=== PATIENT | female | born 2000 | race African-American/Black ===

== ENCOUNTER 2024-05-10 09:45 | Emergency (ER) | payer OTHER, SELFPAY ==
[2024-05-10 10:03] VITALS: BP 106/61; PULSE 83; RESP 18; TEMP 36.6; O2SAT 98; BMI 27.8
--- NOTE | 2024-05-10 11:29 | ED.GENADULT ---
HPI - General Adult General Chief complaint: General Medical Stated complaint: rash on both hands Time Seen by Provider: 05/10/24 11:24 Source: patient Mode of arrival: ambulatory Limitations: no limitations History of Present Illness ED Provider: SHASTA ARELLANO PA-C HPI narrative: 24 year old female presents to the ED today for evaluation of hand rash x2-3 days. Describes the rash as small red dots to her palms. No drainage. Admits to itching sensation on the bottom of her feet. Denies any oral lesions. Denies recent abx. No medication changes. No new soaps/ lotions/ detergents. No known tick or insect bites. She does not have any children at home. She does not work in healthcare. She is currently in school ([employer]) and states that many individuals there have children and have been ill recently. Denies headache, fever, chills, vision changes, neck pain, sore throat, cough. Related Data Allergies Allergy/AdvReac Type Severity Reaction Status Date / Time apricot Allergy Hives Verified 05/10/24 10:06 souza [cherries] Allergy Hives Verified 05/10/24 10:06 peach Allergy Hives Verified 05/10/24 10:06 plum Allergy Hives Verified 05/10/24 10:06 Review of Systems Review of Systems: Yes all other systems are reviewed and are negative PMFSH Past Medical History Attestation statement: The following information was validated with the patient. Source: old records reviewed and nursing notes reviewed Physical Exam ED Vital Signs: Vital Signs - 24 hr 05/10/24 10:03 Temperature 98 F Pulse Rate 83 Respiratory Rate 18 Blood Pressure 106/61 Pulse Oximetry 98 Oxygen Delivery Method Room Air BMI result Body Mass Index 27.8 vital signs stable General: Well appearing, in no acute distress. Skin: +multiple small red spots to b/l palms, slightly visible to plantar aspects of b/l feet. spares webbed spaces. no obvious lesions to mucous membranes. no sloughing. no target lesions. nondermatomal pattern. no drainage. Head: Normocephalic, atraumatic. EENT: Hearing is intact b/l. Conjunctiva clear. PERRLA. EOM intact. Moist mucous membranes.? Cardiac: Chest wall symmetric Lungs: Normal respiratory effort without accessory muscle use Neuro: AOx3. Normal speech. Ambulating with steady gait. Medical Decision Making Medical Decision Making [facility] Narrative: This is a 24 patient who presents with palmar rash consistent with HFM disease. Vitals are stable. she is nontoxic appearing. on exam there are multiple small red spots to b/l palms, slightly visible to plantar aspects of b/l feet. spares webbed spaces. no obvious lesions to mucous membranes. no sloughing. no target lesions. nondermatomal pattern. no drainage. Differential diagnosis includes HFM, contact/atopic/eczematous dermatitis, psoriasis. History and exam findings not consistent with lyme/tick bourne illness, herpes zoster/simplex, scabies,? dangerous etiologies of rash such as SJS/TEN, or secondary dangerous causes such as petechial rashes from thrombocytopenia or rickettsial infections.? Plan at this time is to treat symptomatically, instruct to follow up with PCP or derm PRN. Differential Diagnosis Differential Diagnoses: The differential diagnosis associated with the presentation includes as above. Admission/Observation not indicated. Social Determinants Patient?s care significantly limited by Social Determinants of Health including: Other Social Determinant of Health Critical Care Time Critical Care Time Critical Care Time: No Discharge Plan Discharge Clinical Impression: Hand, foot and mouth disease Patient Disposition: Home, Self-Care Instructions: Hand, Foot, and Mouth Disease (ED) Additional Instructions: Your rash is consisted with HFM disease (see home instructions). This is highly contagious, spread through bodily fluids. It is self limiting and does not require treatment with medications. You may take benadryl for itching. Return with new or worsening symptoms. In the case of an emergency call 911. Referrals: Physician,Unknown J [Primary Care Provider] - Stand Alone Forms: Work/School Release Discharge Date/Time: 05/10/24 11:34 Print Language: Divehi
[2024-05-10 11:33] VITALS: BP 106/61; PULSE 83; RESP 18; TEMP 36.6; O2SAT 98
--- OUTSIDE RECORDS SUMMARY | 2024-05-10 13:10 | XMS_ITS | Encounter Summary ---
Author Organization [facility] Address [address] [place] [address] Care Team Providers Care Buyer Renter Name Role Phone Nevaeh Huffman Primary Care Provider [phone] Encounter Details Date Type Department Care Team (Late st Contact Info) Description 04/09/2024 myChart Message [facility] [address] [place] [address] [id number] Electronic Component Processor: Lalo Ko MD PhD [address] [place] [phone] Adding vitamins to my regiment Social History Tobacco Use Types Packs/Day Years Used Date Smoking Tobacco: Never Smokeless Tobacco: Never Comments:: Alcohol Use Standard Drinks/Week Comments No 0 (1 standard drink = 0.6 oz pur e alcohol) Comments No Sex and Gender Information Value Date Recorded Sex Assigned at Female 07/13/2019 8:00 AM EDT Legal Sex Female 12:48 AM EDT Gender Identity Female 07/13/2019 8:00 AM EDT Sexual Orientation Straight 07/13/2019 8: 00 AM EDT documented as of this encounter Plan of Treatment Upcoming Encounters Date Type Department Care Team (Late st Contact Info) Description 07/05/2024 4:00 PM EDT Telehealth [facility] [address] [place] [address] [phone] Electronic Component Processor: Lalo Ko MD PhD [address] [place] [address] documented as of this encounter Visit Diagnoses Not on filedocumented in this encounter Care Teams Buyer Renter Relationship Specialty Start Date End Date Nevaeh Huffman PA [address] [place] [phone] PCP - General Physician Financial Counselor 10/25/19 documented as of this encounter
--- OUTSIDE RECORDS SUMMARY | 2024-05-10 13:10 | XMS_ITS | Clinical Summary ---
Author Organization [facility] Address [address] [place] [address] Care Team Providers Care Inspector And Tester Name Role Phone Nevaeh Huffman Primary Care Provider [phone] Allergies Active Allergy Reactions Criticality Noted Date Comments Apple Angioedema High Cat Dander Itching Smith Angioedema High 08/08/2021 Parmer Hives Blotches [place] Angioedema High 05/30/2017 Medications * This document contains information received from the source organization and may not represent a complete record from that organization. OCRELIZUMAB (OCREVUS INTRAVENOU) Infuse intravenous ly. Active modafiniL (PROVIGIL) 200 mg tablet TAKE 1 TABLET BY MOUTH TWICE A DAY 60 tablet 5 02/27/2024 Active Active Problems Patient Care Coordination No te Formatting of this note migh t be different from the original. PT-1 # [id number] [facility] [address] [facility] Duration of services 6 Months Frequency of services 1 visit per Month Member will require a wheelchair van No Member will be accompanied by an escort No Member will require a service animal No EXP: 12/20/20 Problem Noted Date Diagnosed Date Myopia of both eyes with astigmatism 12/19/2021 Assessment & Plan (12/19/2021 9:11 AM EDT): Significant change in Rx OU. New Eyeglasses to be ordered. Anxiety 12/19/2021 Possible exposure to STD 11/01/2021 Assessment & Plan (11/01/2021 11:31 AM EDT): Since has never had STD testing decided to do it today to be sure since she was exposed to herpes. Herpes labialis 11/01/2021 Assessment & Plan (11/01/2021 11:31 AM EDT): Discussed with patient she definitely has a cold sore which is herpes. Gave valacyclovir to take now. Also can get abreva otc to use on the area. Discussed transmission of sores. No gential sores ever seen. Advised if she gets any to send me a JiaThis message for a different dose of valacyclovir to treat it. Suspected COVID-19 virus infection 10/25/2019 Assessment & Plan (10/25/2019 1:26 PM EDT): Patient reports 1 day history of body aches, sore throat. She does not have a thermometer at home to check her temperature. She has been continuing to work throughout the pandemic, and travels public transportation. No known positive COVID contacts. Recent travel out of state. Due to symptoms and possible exposure, will order COVID-19 testing If COVID-19 testing is negative and symptoms persist, should consider work up for strep throat vs. Haakon. Advised patient to avoid anything by mouth for at least 30 minutes before the test. Instructed patient to self quarantine until results are received Advised patient to continue supportive care with Tylenol/Motrin for pain/fever, ensuring adequate hydration, getting plenty of rest. Multiple sclerosis 11/03/2018 Assessment & Plan (12/19/2021 9:10 AM EDT): ? H/o optic neuritis based on optic disc pallor OD and OCT findings and presence of MS. Vision is 20/20 in each eye today, stable. RTC for VFT 1 mos. Vitamin D deficiency 07/20/2018 Routine health maintenance 08/18/2017 Assessment & Plan (08/18/2017 3:20 PM EDT): Patient with no complaints. Patient offered and agreeable to STD testing today. Will order HIV, syphilis, gonorrhea and chlamydia today and follow up results. Patient has only had first in HPV vaccine series. Will defer completion of vaccine series until completion of therapy with Ocrevus as vaccinations are recommended to be given 6 weeks prior to initiation of therapy per FDA medication guide. Eczematous dermatitis 08/18/2017 Assessment & Plan (08/18/2017 3:16 PM EDT): Patient with pruritic rash over upper arms, shoulders and over back most consistent with atopic dermatitis but could also be due to recent administration of Ocrevus for her MS. Will prescribe hydrocortisone cream today. Patient to return if symptoms worsen or do not improve. Patient advised to not scratch as she had been to avoid infection. Cerebellar nystagmus 05/06/2017 Left hemiparesis (CMS/HCC) 05/03/2017 Left foot drop 05/03/2017 Seasonal allergic rhinitis 05/01/2017 Assessment & Plan (08/18/2017 3:10 PM EDT): Patient states allergies are well controlled with as needed use of loratidine. Swollen turbinates in nostrils b/l on exam. Patient encouraged to use saline spray and avoid blowing nose if possible. Continue loratadine for prn for symptomatic relief. Intermittent asthma 04/29/2017 Generalized muscle weakness 04/29/2017 Bradycardia 04/27/2017 Assessment & Plan (04/28/2017 2:15 PM EST): HR 60s-80s on admission. Over the past the past couple of days, HR 40s-50s mostly while sleeping, asymptomatic. Sinus rhythm on telemetry. Patient has been asymptomatic during hospital course. Recommend outpatient follow up with cardiology. Urinary retention 04/24/2017 Assessment & Plan (04/28/2017 2:13 PM EST): Patient developed urinary retention secondary to MS flare. Was initially given straight catheterization but procedure was extremely painful due to muscle spasm. She was therefore given a diez catheter. Continue diez catheter until improvement in strength. Reevaluate. Contraception management 10/12/2013 Assessment & Plan (05/30/2017 2:20 PM EDT): Patient currently with Nexplanon in place and would like to have it removed as she associates the placement of the implant with worsening of her MS. She would in turn like to re-start Lutera which she was taking prior to placement of her implant. Patient to return in one week for procedure clinic. Multiple sclerosis exacerbation 09/17/2013 Assessment & Plan (08/18/2017 3:13 PM EDT): Patient has had full remission of her flare up and states she currently feels well. 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 Assessment & Plan (05/30/2017 2:18 PM EDT): Patient coming in today for follow up of hospitalization for MS flare up. Currently feeling better overall; however does complain of muscle spasms. Discussed baclofen which was subsequently prescribed by patient's neurologist Dr. Buckley during this encounter. Patient to follow up with Dr. Buckley next week and anticipated to start IVIG treatment at home in the coming days. Will reassess patient's muscle spasms and any additional symptoms at next visit. Assessment & Plan (04/28/2017 2:29 PM EST): This patient has had six ED or hospital visits since January for symptoms of MS flare. She was initially diagnosed in 2013 and had previously been treated with Copaxone. She had been off of Copaxone therapy for about one year, initially discontinued by patient due to symptoms of depression. Her symptoms have since worsened and she is interested in restarting the medication but is having difficulty getting it approved by insurance. She is followed by Dr. Buckley of neurology and was in Dr. Buckley's clinic in March 2017. She has been trying to get the patient in to see a multiple sclerosis specialist at [facility]. Her most recent MRI of brain and spine prior to admission was done in March 2017, showing new brain lesions and cervical spinal lesions. Now presenting with symptoms of blurry vision, tingling and numbness in the right hand and left leg, difficulty walking, and somnolence. This is consistent with MS flare ? 1 week. Given 125 mg Solu-Medrol in ED. She was then started on 1000 mg Solumedrol on 04/23. Dr. Buckley of Neurology was consulted and started her on IVIG therapy 50g IV daily on 04/24 for three days per IVIG infusion protocol. She also recommended transfer to [facility] and a bed was secured for her, however the patient's mother had understood that Dr. Buckley did not want her to go to [facility] unless an MS specialist would be seeing her in the hospital. Since [facility] does not have MS specialists available at the inpatient service, she therefore refused the transfer. 04/24 Patient developed bladder retention along with spasms and was put on a diez catheter. Swallow was evaluated and found her able to safely and efficiently tolerate regular textures and thin liquids without overt s/sx of aspiration. 04/25 - MRI brain w/wo contrast showed multiple new lesions in the brain parenchyma, including the cranial mario, and C1-2 level. Flexeril was discontinued. Discussed with Dr. Buckley, who is still interested in having the patient transferred to a tertiary hospital. She will discuss with the family, who are not interested in transferring to [place]. She does feel that there has been some interval improvement in Nashia's symptoms. Nursing reported poor UOP and poor intake; patient was started on NS at 70 ml/H. 04/26 [facility] contacted today, spoke with neurologist Dr. Mojica who recommended outpatient follow up with MS specialist after rehab as patient has completed course of treatment for MS flare with 3 days of IV solumedrol and IVIG. Contact information for Genevieve James at [facility] [phone] (direct line). [phone] (General [facility] phone#)to schedule appointment for acute visit after discharge from hospital. 04/27: Completed 5 day course of IV 1000 mg methylprednisolone and 3 day course of IVIG 50mg. Improvement in strength, right greater than left. 04/28: Little improvement in strength from previous exam. Left side weaker than right. Will discharge to acute rehab at [place]. Continue diez catheter until improvement in strength. Dr. Buckley wrote prescription for Glatopa sent to speciality pharmacy. Mom will medicinal plant picker medication and resume at rehab facility. Follow up with MS Clinic at [facility] in 1 week. Genevieve James at [facility] [phone]. Encounter for other specified special examinatio ns Glaucoma suspect of both eyes Assessment & Plan (12/19/2021 9:11 AM EDT): Due to large cupping OU. Low IOPS and no family hx. Baseline VFT last year: Borderline GHT OU. Baseline OCT today OU. OCT Interpretation: OD: 80 Reliability, AVG RNFL 80, C/D h/v 82/82 RNFL thin I&T>S. GCA thin 360 OS: 87 Reliability, AVG RNFL 87, C/D h/v 78/78 RNFL thin I&T, GCA thin 360 Plan: RTC for repeat VFT in one month due to suspicious OCT findings. Resolved Problems Problem Noted Date Diagnosed Date Resolved Date Mild intermittent asthma without complication 05/02/19 18 08/18/2017 Adjustment reaction 12/16/2013 04/23/19 18 Encounters Date Type Department Care Team Description 04/09/2024 Orders Only [facility] [address] [place] [phone] Inspector And Clipper: Lalo Ko MD PhD Multiple sclerosis (HCC) (Primary Dx) 04/09/2024 myChart Message [facility] [address] [place] [phone] Inspector And Clipper: Lalo Ko MD PhD Adding vitamins to my regiment 02/28/2024 Refill [facility] [address] [place] [phone] Inspector And Clipper: Lalo Ko MD PhD 02/27/2024 Refill [facility] [address] [place] [address] [phone] Inspector And Clipper: Lalo Ko MD PhD from Last 3 Months Immunizations Immunization Administration Dates Next Due Covid-19 Monovalent Vaccine, Moderna, mRNA, PF 08/22/2020,07/25/2020 DTaP-Hepatitis B and Poliovi carlos Vaccine 1998 Diphtheria, Tetanus Toxoids and Acellular Pertussis Vaccine, 5 Pertussis Antigens 12/31/2002,10/16/1999,1998,07/13 Haemophilus Influenzae Type B Vaccine, PRP-OMP Conjugate 10/16/1999,1998,1998 Hepatitis B Vaccine, Pediatr ic or Pediatric/Adolescent Dosage 1998,1998,1998 Human Papilloma Virus Vaccin e, Quadrivalent 07/06/2013 Human Papillomavirus 9-Valent Vaccine 10/06/2011 INFLUENZA, SPLIT VIRUS, TRIVALENT, PF 12/04/2010 ,02/14/2005,03/14/2003 Immune Globulin, Intravenous 04/26/2017, 04/26/2017,04/26/2017,04/26,04/26/2017,04/25/2017,04/25/2017 ,04/25/2017,04/25/2017,04/25/2017,04/04,04/24/2017,04/24/2017, 8,04/24/2017,04/24/2017 Influenza, Injectable, Quadr ivalent, Preservative Free 11/02/2017 Influenza, Unspecified 12/12/2021 Measles, Mumps, and Rubella Vaccine 12/31/2002,0 10/16/1999,1998 Pneumococcal Polysaccharide Vaccine, 23 Valent 05/20/2001 Poliovirus Vaccine, Inactivated 12/31/2002,10/15,1998 Tetanus Toxoid, Reduced Diph theria Toxoid, and Acellular Pertussis Vaccine, Adsorbed 10/22/2010 Varicella Virus Vaccine 10/22/2010,04/07/2000 Family History Medical History Relation Name Comments ADD / ADHD Brother Iron deficiency Father ADD / ADHD Mother Bipolar disorder Mother Depression Mother Other Mother Family history of Decorative tattoo Depression Paternal Grandmother Diabetes Paternal Grandmother Diabetes type II Paternal Grandmother Insomnia Paternal Grandmother Iron deficiency Paternal Grandmother Blindness Neg Hx Glaucoma Neg Hx Heart disease Neg Hx Macular degeneration Neg Hx Retinal detachment Neg Hx Relation Name Status Comments Brother Father Mother Paternal Grandmother Social History Tobacco Use Types Packs/Day Years Used Date Smoking Tobacco: Never Smokeless Tobacco: Never Tobacco Cessation:Counseling Given: Not Answered Comments:: Alcohol Use Standard Drinks/Week Comments No 0 (1 standard drink = 0.6 oz pur e alcohol) Comments No Sex and Gender Information Value Date Recorded Sex Assigned at Female 07/13/2019 8:00 AM EDT Legal Sex Female 12:48 AM EDT Gender Identity Female 07/13/2019 8:00 AM EDT Sexual Orientation Straight 07/13/2019 8: 00 AM EDT Last Filed Vital Signs Vital Sign Reading Time Taken Comments Blood Pressure 99/64 08/08/2023 11:41 AM EDT Pulse 59 08/08/2023 11:41 AM EDT Temperature 36.8 ??C (98.2 ??F) 08/08/2023 1 1:41 AM EDT Respiratory Rate 18 08/08/2023 8:35 AM EDT Oxygen Saturation 100% 08/08/2023 11: 41 AM EDT Inhaled Oxygen Concentration - - Weight 64.8 kg (142 lb 13.7 oz) 08/08/2023 8:35 AM EDT Height 154.9 cm (5' 1 ) 11/03/2018 2:49 PM EDT Body Mass Index 26.99 11/03/2018 2:49 PM EDT Plan of Treatment Upcoming Encounters Date Type Department Care Team (Late st Contact Info) Description 07/05/2024 4:00 PM EDT Telehealth [facility] [address] [place] [address] Inspector And Clipper: Lalo Ko MD PhD [address] [place] [phone] Health Maintenance Due Date Last Done Comments Pap Smear 1998 Pneumococcal Vaccine: Pediat juan miguel (0-5 Years) and At-Risk Patients (6-50 Years) (2 of 3 - PCV) 05/20/2002 05/20/2001 DTaP,Tdap,and Td Vaccines (7 - Td or Tdap) 10/22/2020 10/22/2010, 12/31/2002, 10/16/1999, Additional history exists COVID-19 Vaccine (3 - 2023-2 5 season) 2023 08/22/2020, 07/25/2020 Alcohol/Substance Use Screening 03/03/2024 Depression Screening and Follow-Up 03/03/2024 Oral Health Screening 03/03/2024 Social Drivers of Health Edwige ual Screening 03/03/2024 RSV Vaccine (60+ years old a nd patients) (1 - 1-dose 75+ series) 2073 Hepatitis B Vaccines Completed 1998, 1998, 1998, Additional history exists Varicella Vaccines Completed 10/22/2010, 04/07/2000 HPV Vaccines Completed 07/06/2013, 10/06/2011 HIV Screening Completed 11/01/2021 Hepatitis C Screening Completed 11/01/2021 , 06/23/2017, 06/19/2017 Influenza Vaccine Completed 01/29/2024, , 11/02/2017, Additional history exists Procedures * Due to [place] [employer] law, this organization might not be sharing negative HIV tests. Procedure Name Priority Date/Time Associated Diagnosis Comments HEPATITIS C ANTIBODY W/REFLEX TO HCV RNA, QUANTITATIVE PCR Routine 11/01/2021 9:57 AM EDT Possible exposure to STD from Last 3 Months or Most Recently Relevant to Health Maintenance Results * Due to [place] [employer] law, this organization might not be sharing negative HIV tests. * Hepatitis C Antibody w/Reflex to HCV RNA, Quantitative PCR (11/01/2021 9:57 AM EDT) Hepatitis C Antibody Interpretation Nonreactive Nonreactive [facility] [employer] 10:39 AM EDT [facility] iAgreeTRI-CITY MEDICAL CENTERSnapbridge SoftwareHU [facility] Blood Structure of peripheral vein / Unknown Venipuncture / Unknown 11/01/2021 9:57 AM EDT 11/01/2021 9:57 AM EDT us Nevaeh [facility] BLOOD ORDERABLES Final Re sult [facility] [address] [place] [phone], [place] from Last 3 Months or Most Recently Relevant to Health Maintenance Insurance [place] [employer] Advance Directives * Full Code (Latest Code Status on File) Date Activated Date Inactivated Comments 04/23/2017 8:04 PM 04/28/2017 9:07 PM * Presumed Full Code Date Activated Date Inactivated Comments 02/12/2017 3:07 AM 02/13/2017 6:12 PM Care Teams Inspector And Tester Relationship Specialty Start Date End Date Nevaeh Huffman PA [address] [place] [id number] PCP - General Physician Bill Adjuster 10/25/19
--- OUTSIDE RECORDS SUMMARY | 2024-05-10 13:10 | XMS_ITS | Referral Summary ---
Author Organization [facility] Address [address] [place] [address] Care Team Providers Care Aboriginal Ceremonial Celebrant Name Role Phone Nevaeh Huffman Primary Care Provider [phone] Encounters Date Type Department Care Team Description 04/09/2024 Orders Only [facility] [address] [place] [phone] Mechanical Drawing Teacher: Lalo Ko MD PhD Multiple sclerosis (HCC) (Primary Dx) 04/09/2024 myChart Message [facility] [address] [place] [phone] Mechanical Drawing Teacher: Lalo Ko MD PhD Adding vitamins to my regiment 02/28/2024 Refill [facility] [address] [place] [phone] Mechanical Drawing Teacher: Lalo Ko MD PhD 02/27/2024 Refill [facility] [address] [place] [phone] Mechanical Drawing Teacher: Lalo Ko MD PhD from Last 3 Months Allergies Active Allergy Reactions Criticality Noted Date Comments Apple Angioedema High Cat Dander Itching [place] Angioedema High 08/08/2021 [place] Hives Blotches [place] Angioedema High 05/30/2017 Medications * This document [...] be different from the original. PT-1 # [id number] [facility] [address] [facility] Duration of services 6 Months Frequency [...] she gets any to send me a BrandCont message for a different dose of valacyclovir [...] consider work up for strep throat vs. Dare. 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 Assessment & Plan (05/30/2017 2:18 [...] to see a multiple sclerosis specialist at [facility]. Her most recent MRI of brain and [...] infusion protocol. She also recommended transfer to [facility] and a bed was secured for her, however the patient's mother had understood that Dr. Buckley did not want her to go to [facility] unless an MS specialist would be seeing her in the hospital. Since [facility] does not have MS specialists available at [...] who are not interested in transferring to [place]. She does feel that there has been some interval improvement in Feroz's symptoms. Nursing reported poor UOP and poor intake; patient was started on NS at 70 ml/H. 04/26 [facility] [place] today, spoke with neurologist Dr. Mojica who recommended outpatient follow up with MS specialist after rehab as patient has completed course of treatment for MS flare with 3 days of IV solumedrol and IVIG. Contact information for Genevieve James at [facility] [phone] (direct line). [phone] (General [facility] phone#)to schedule appointment for acute visit after discharge from hospital. 04/27: Completed 5 day course of IV 1000 mg methylprednisolone and 3 day course of IVIG 50mg. Improvement in strength, right greater than left. 04/28: Little improvement in strength from previous exam. Left side weaker than right. Will discharge to acute rehab at [place]. Continue diez catheter until improvement in strength. Dr. Buckley wrote prescription for Glatopa sent to speciality pharmacy. Mom will pick up worker medication and resume at rehab facility. Follow up with MS Clinic at [facility] in 1 week. Genevieve James at [facility] [phone]. Encounter for other specified special examinatio ns [...] 18 08/18/2017 Adjustment reaction 12/16/2013 04/23/19 18 Immunizations Immunization Administration Dates Next Due Covid-19 [...] Vaccine, Adsorbed 10/22/2010 Varicella Virus Vaccine 10/22/2010,04/07/2000 Social History Tobacco Use Types Packs/Day Years [...] Info) Description 07/05/2024 4:00 PM EDT Telehealth [facility] [address] [place] [phone] Mechanical Drawing Teacher: Lalo Ko MD PhD [address] [place] [phone] Procedures * Due to [facility] law, this organization might not be sharing negative HIV tests. Procedure Name Priority Date/Time Associated Diagnosis Comments HEPATITIS C ANTIBODY W/REFLEX TO HCV RNA, QUANTITATIVE PCR Routine 11/01/2021 9:57 AM EDT Possible exposure to STD from Last 3 Months or Most Recently Relevant to Health Maintenance Results * Due to [place] [employer] law, this organization might not be sharing negative HIV tests. * Hepatitis C Antibody w/Reflex to HCV RNA, Quantitative PCR (11/01/2021 9:57 AM EDT) Hepatitis C Antibody Interpretation Nonreactive Nonreactive [facility] 10:39 AM EDT [facility] Blood Structure of peripheral vein / Unknown Venipuncture / Unknown 11/01/2021 9:57 AM EDT 11/01/2021 9:57 AM EDT us Nevaeh [facility] BLOOD ORDERABLES Final Re sult [facility] [address] [place] [address], [place] from Last 3 Months or Most Recently Relevant to Health Maintenance [facility] Advance Directives * Full Code (Latest Code Status on File) Date Activated Date Inactivated Comments 04/23/2017 8:04 PM 04/28/2017 9:07 PM * Presumed Full Code Date Activated Date Inactivated Comments 02/12/2017 3:07 AM 02/13/2017 6:12 PM Care Teams Aboriginal Ceremonial Celebrant Relationship Specialty Start Date End Date Nevaeh Huffman PA [address] [place] [phone] PCP - General Physician Carriage Rider 10/25/19
--- OUTSIDE RECORDS SUMMARY | 2024-05-10 13:10 | XMS_ITS | Encounter Summary ---
Author Organization [facility] Address [address] [place] [address] Care Team Providers Care Marketing Community Liaison Name Role Phone Nevaeh Huffman Primary Care Provider [phone] Encounter Details Date Type Department Care Team (Late st Contact Info) Description 08/14/2022 myChart Message [facility] Counseling Department [address] [place] [address] Mychart, Generic Provider [address] [place] [phone] IMPORTANT - ACTION REQUIRED - [facility] Social History Tobacco Use Types Packs/Day Years [...] Info) Description 07/05/2024 4:00 PM EDT Telehealth [facility] [address] [place] [address] Sales Operations Director: Lalo Ko MD PhD [address] [place] [address] documented as of this encounter Visit Diagnoses Not on filedocumented in this encounter Care Teams Marketing Community Liaison Relationship Specialty Start Date End Date Nevaeh Huffman PA [address] [place] [id number] PCP - General Physician Finger Buff Sewer 10/25/19 documented as of this encounter
== END 2024-05-10 11:34 | disposition home or self-care (01) ==
PROVIDERS: Emergency Provider Emergency Medicine
DX: B08.4 Enteroviral vesicular stomatitis with exanthem (principal)
CPT/HCPCS: 99282